=== PATIENT | female | born 1945 | race Caucasian/White ===

== ENCOUNTER 2016-07-28 17:59 | Emergency (ER) | payer MEDICARE ==
[~2016-07-28 17:59] MED LIST: ALBUTEROL IN200 PUFF INH; ALBUTEROL0.63 MG/3 INH; ALLERGY RELIEF10 M1 PO; BUSPIRONE HCL5 MG PO; FEOSOL325 MG PO; FOSAMAX70 MG PO; FUROSEMIDE20 MG PO; HUMULIN 70100 UNIT/1 SQ; LEVOFLOXACIN750 MG PO; LIPITOR10 MG PO; LISINOPRIL10 MG PO; MEDROL4 M1 PO; METFORMIN HCL500 MG PO; NICODERM 21MG PA1 EA TD; OMEPRAZOLE40 MG PO; PERCOCET 10-321 EACH PO; PLAVIX75 MG PO; POTASSIUM CHLO10 MEQ PO; ROPINIROLE HCL0.5 MG PO; THEO-24200 MG PO; TYLENOL325 M1 PO
[2016-07-28 19:09] LABS: BASO % 0.1 % (0.1-1.2); EOS # 0.1 10_X3_uL (0.0-0.4); EOS % 1.2 % (0.7-5.8); GRAN # 6.7 10_X3_uL (1.6-6.1); GRAN % 80.5 % (34.0-71.1); HEMATOCRIT 37.7 % (34-45); HEMOGLOBIN 13.2 g/dL (11.2-15.7); LYMPH # 1.2 10_X3_uL (1.2-3.7); LYMPH % 14.2 % (19.3-51.7); MEAN CORPUSCULAR HEMOGLOBIN 34.3 pg (27.0-33.0); MEAN CORPUSCULAR VOLUME 97.9 fL (79-95); MEAN PLATELET VOLUME 9.6 fl (7.5-11.5); MONO # 0.3 10_X3_uL (0.2-0.9); PLATELET COUNT 174 x10_3/uL (182-369); RED BLOOD COUNT 3.85 x10_6/uL (3.9-5.2); RED CELL DISTRIBUTION WIDTH 13.2 % (11.7-14.4); WHITE BLOOD COUNT 8.3 x10_3/uL (4.0-10.0)
[2016-07-28 19:25] LABS: BLOOD UREA NITROGEN 14 mg/dL (7-18); CALCIUM 8.7 mg/dL (8.7-10.7); CARBON DIOXIDE 29 mmol/L (21-32); CREATINE KINASE 29 U/L (21-215); CREATININE 0.9 mg/dL (0.6-1.3); GLUCOSE,RANDOM 260 mg/dL (70-99); POTASSIUM 3.9 mmol/L (3.5-5.1); SODIUM 132 mmol/L (136-145)
== END 2016-07-28 20:59 | disposition home or self-care (01) ==
LOC: ER 17:59
PROVIDERS: Emergency Medicine
DX: J44.0 Chronic obstructive pulmonary disease with (acute) lower respiratory infection (principal); J20.9 Acute bronchitis, unspecified; J44.1 Chronic obstructive pulmonary disease with (acute) exacerbation; I45.10 Unspecified right bundle-branch block; I50.9 Heart failure, unspecified; K21.9 Gastro-esophageal reflux disease without esophagitis; G89.29 Other chronic pain; F32.9 Major depressive disorder, single episode, unspecified; F11.20 Opioid dependence, uncomplicated; Z85.118 Personal history of other malignant neoplasm of bronchus and lung; Z95.1 Presence of aortocoronary bypass graft; Z99.81 Dependence on supplemental oxygen; Z88.0 Allergy status to penicillin; Z88.2 Allergy status to sulfonamides; Z79.891 Long term (current) use of opiate analgesic; Z79.899 Other long term (current) drug therapy
CPT/HCPCS: 36415; 71010; 80048; 82550; 82553; 83880; 85025; 87040; 87400; 93005; 94664; 96374; 99283-25; 99284; J2920

== ENCOUNTER 2016-08-07 20:36 | Emergency (ER) | payer OTHER, MEDICARE ==
[2016-08-07 23:29] LABS: BASO % 0.3 % (0.1-1.2); EOS # 0.1 10_X3_uL (0.0-0.4); EOS % 2.1 % (0.7-5.8); GRAN # 5.1 10_X3_uL (1.6-6.1); HEMATOCRIT 39.1 % (34-45); HEMOGLOBIN 13.5 g/dL (11.2-15.7); LYMPH # 1.2 10_X3_uL (1.2-3.7); LYMPH % 17.6 % (19.3-51.7); MEAN CORPUSCULAR HEMOGLOBIN 34.2 pg (27.0-33.0); MEAN CORPUSCULAR HGB CONC 34.5 g/dL (32.0-36.0); MEAN PLATELET VOLUME 9.9 fl (7.5-11.5); MONO # 0.4 10_X3_uL (0.2-0.9); PLATELET COUNT 173 x10_3/uL (182-369); RED BLOOD COUNT 3.95 x10_6/uL (3.9-5.2); RED CELL DISTRIBUTION WIDTH 12.5 % (11.7-14.4); WHITE BLOOD COUNT 6.8 x10_3/uL (4.0-10.0)
[2016-08-07 23:44] LABS: ALBUMIN 3.7 gm/dL (3.4-5.0); ALKALINE PHOSPHATASE 95 U/L (50-136); ALT/SGPT 12 U/L (3.5-33.9); AST/SGOT 14 U/L (7.04-26.96); BILIRUBIN,TOTAL 0.57 mg/dL (0.0-1.0); BLOOD UREA NITROGEN 14 mg/dL (7-18); CALCIUM 8.7 mg/dL (8.7-10.7); CARBON DIOXIDE 29 mmol/L (21-32); CREATINE KINASE 30 U/L (21-215); CREATININE 0.7 mg/dL (0.6-1.3); GLUCOSE,RANDOM 235 mg/dL (70-99); SODIUM 136 mmol/L (136-145); TOTAL PROTEIN 6.9 gm/dL (6.4-8.2)
== END 2016-08-08 01:55 | disposition home or self-care (01) ==
LOC: ER 20:36
PROVIDERS: Emergency Medicine
DX: J44.9 Chronic obstructive pulmonary disease, unspecified (principal); R06.02 Shortness of breath; R06.2 Wheezing; Z85.118 Personal history of other malignant neoplasm of bronchus and lung; Z95.1 Presence of aortocoronary bypass graft; F17.210 Nicotine dependence, cigarettes, uncomplicated; Z88.0 Allergy status to penicillin; Z88.2 Allergy status to sulfonamides; Z79.891 Long term (current) use of opiate analgesic
CPT/HCPCS: 36415; 71010; 80053; 82550; 82553; 83880; 85025; 93005; 94664; 99070; 99284; 99285-25

== ENCOUNTER 2016-08-27 22:39 | Emergency (ER) | payer OTHER, MEDICARE | END 2016-08-28 00:01 | disposition other institution (70) | LOC: ER 22:39 | DX: I50.9 Heart failure, unspecified (principal); J44.9 Chronic obstructive pulmonary disease, unspecified; J84.9 Interstitial pulmonary disease, unspecified; R60.0 Localized edema; R21 Rash and other nonspecific skin eruption; R06.02 Shortness of breath; I51.7 Cardiomegaly; I73.9 Peripheral vascular disease, unspecified; I87.8 Other specified disorders of veins; E66.01 Morbid (severe) obesity due to excess calories; E11.9 Type 2 diabetes mellitus without complications; I25.10 Atherosclerotic heart disease of native coronary artery without angina pectoris; Z95.1 Presence of aortocoronary bypass graft; Z99.81 Dependence on supplemental oxygen; F17.210 Nicotine dependence, cigarettes, uncomplicated; Z79.899 Other long term (current) drug therapy; Z88.0 Allergy status to penicillin | CPT/HCPCS: 99285-25 ==

== ENCOUNTER 2016-08-27 22:39 | Inpatient (IN) | payer OTHER, MEDICARE ==
[~2016-08-27] VITALS: Ht 167.6 cm; Wt 112.0 kg
[2016-08-27 23:06] LABS: BASO % 0.4 % (0.1-1.2); EOS # 0.2 10_X3_uL (0.0-0.4); EOS % 2.8 % (0.7-5.8); GRAN # 5.3 10_X3_uL (1.6-6.1); GRAN % 75.2 % (34.0-71.1); HEMATOCRIT 41.2 % (34-45); HEMOGLOBIN 14.2 g/dL (11.2-15.7); LYMPH # 1.2 10_X3_uL (1.2-3.7); LYMPH % 16.6 % (19.3-51.7); MEAN CORPUSCULAR HEMOGLOBIN 33.6 pg (27.0-33.0); MEAN CORPUSCULAR HGB CONC 34.5 g/dL (32.0-36.0); MEAN CORPUSCULAR VOLUME 97.4 fL (79-95); MEAN PLATELET VOLUME 9.5 fl (7.5-11.5); MONO # 0.4 10_X3_uL (0.2-0.9); PLATELET COUNT 181 x10_3/uL (182-369); RED BLOOD COUNT 4.23 x10_6/uL (3.9-5.2); RED CELL DISTRIBUTION WIDTH 12.3 % (11.7-14.4); WHITE BLOOD COUNT 7.1 x10_3/uL (4.0-10.0)
[2016-08-27 23:19] LABS: CALCIUM 8.6 mg/dL (8.7-10.7); POTASSIUM 4.4 mmol/L (3.5-5.1)
[2016-08-28 05:51] LABS: AHDL CHOLESTEROL 52 mg/dL (>40); ALBUMIN 3.7 gm/dL (3.4-5.0); ALKALINE PHOSPHATASE 90 U/L (50-136); ALT/SGPT 9 U/L (3.5-33.9); AST/SGOT 13 U/L (7.04-26.96); BILIRUBIN,TOTAL 0.58 mg/dL (0.0-1.0); BLOOD UREA NITROGEN 16 mg/dL (7-18); CALCIUM 8.8 mg/dL (8.7-10.7); CARBON DIOXIDE 28 mmol/L (21-32); CHOLESTEROL 188 mg/dL (0-200); CREATININE 0.9 mg/dL (0.6-1.3); GLUCOSE,RANDOM 118 mg/dL (70-99); LDL CHOLESTEROL 121 mg/dL (0-99); POTASSIUM 4.3 mmol/L (3.5-5.1); SODIUM 139 mmol/L (136-145); TOTAL PROTEIN 6.7 gm/dL (6.4-8.2); TRIGLYCERIDES 149 mg/dL (30-200)
[2016-08-28 06:11] LABS: HEMATOCRIT 40.7 % (34-45); HEMOGLOBIN 14.2 g/dL (11.2-15.7); MEAN CORPUSCULAR HEMOGLOBIN 33.6 pg (27.0-33.0); MEAN CORPUSCULAR HGB CONC 34.9 g/dL (32.0-36.0); MEAN CORPUSCULAR VOLUME 96.4 fL (79-95); MEAN PLATELET VOLUME 9.9 fl (7.5-11.5); RED BLOOD COUNT 4.22 x10_6/uL (3.9-5.2); RED CELL DISTRIBUTION WIDTH 12.3 % (11.7-14.4); WHITE BLOOD COUNT 7.3 x10_3/uL (4.0-10.0)
[2016-08-29 07:33] LABS: HEMATOCRIT 41.9 % (34-45); HEMOGLOBIN 14.3 g/dL (11.2-15.7); MEAN CORPUSCULAR HEMOGLOBIN 33.3 pg (27.0-33.0); MEAN CORPUSCULAR HGB CONC 34.1 g/dL (32.0-36.0); MEAN CORPUSCULAR VOLUME 97.4 fL (79-95); MEAN PLATELET VOLUME 9.9 fl (7.5-11.5); RED BLOOD COUNT 4.3 x10_6/uL (3.9-5.2); RED CELL DISTRIBUTION WIDTH 12.2 % (11.7-14.4); WHITE BLOOD COUNT 5.2 x10_3/uL (4.0-10.0)
[2016-08-29 07:53] LABS: BLOOD UREA NITROGEN 14 mg/dL (7-18); CALCIUM 8.9 mg/dL (8.7-10.7); CARBON DIOXIDE 30 mmol/L (21-32); CREATININE 0.8 mg/dL (0.6-1.3); GLUCOSE,RANDOM 126 mg/dL (70-99); MAGNESIUM 1.9 mg/dL (1.8-2.4); POTASSIUM 4.4 mmol/L (3.5-5.1); SODIUM 140 mmol/L (136-145)
[2016-08-30 06:39] LABS: HEMATOCRIT 37.7 % (34-45); HEMOGLOBIN 12.6 g/dL (11.2-15.7); MEAN CORPUSCULAR HEMOGLOBIN 33.2 pg (27.0-33.0); MEAN CORPUSCULAR HGB CONC 33.4 g/dL (32.0-36.0); MEAN CORPUSCULAR VOLUME 99.2 fL (79-95); RED BLOOD COUNT 3.8 x10_6/uL (3.9-5.2); RED CELL DISTRIBUTION WIDTH 12.4 % (11.7-14.4); WHITE BLOOD COUNT 5.1 x10_3/uL (4.0-10.0)
[2016-08-30 07:11] LABS: BILIRUBIN,TOTAL 0.6 mg/dL (0.0-1.0); CALCIUM 8.5 mg/dL (8.7-10.7); CREATININE 1.1 mg/dL (0.6-1.3); MAGNESIUM 1.9 mg/dL (1.8-2.4); POTASSIUM 4.7 mmol/L (3.5-5.1); TOTAL PROTEIN 5.9 gm/dL (6.4-8.2)
== END 2016-08-30 11:05 | disposition home or self-care (01) | DRG 292 ==
LOC: ER 22:39 → MS 08-28 00:01
PROVIDERS: General Practice; ADMIT Family Medicine
DX: I11.0 Hypertensive heart disease with heart failure (principal); J44.1 Chronic obstructive pulmonary disease with (acute) exacerbation; I50.33 Acute on chronic diastolic (congestive) heart failure; R19.5 Other fecal abnormalities; R09.89 Other specified symptoms and signs involving the circulatory and respiratory systems; R60.0 Localized edema; I25.10 Atherosclerotic heart disease of native coronary artery without angina pectoris; Z95.1 Presence of aortocoronary bypass graft; G89.29 Other chronic pain; M54.9 Dorsalgia, unspecified; Z85.118 Personal history of other malignant neoplasm of bronchus and lung; E11.9 Type 2 diabetes mellitus without complications; F17.210 Nicotine dependence, cigarettes, uncomplicated; Z99.81 Dependence on supplemental oxygen; Z79.899 Other long term (current) drug therapy; Z79.4 Long term (current) use of insulin; Z88.0 Allergy status to penicillin; Z88.8 Allergy status to other drugs, medicaments and biological substances
CPT/HCPCS: 36415; 71010; 80048; 80053; 80061; 80198; 82962; 83036; 83735; 83880; 85025; 87040; 93306; 94640; 96374; 96375; 99070; 99285-25; G0328-QW

== ENCOUNTER 2016-11-02 12:24 | Emergency (ER) | payer OTHER ==
[2016-11-02 13:03] LABS: BASO % 0.4 % (0.1-1.2); EOS # 0.1 10_X3_uL (0.0-0.4); EOS % 2.1 % (0.7-5.8); GRAN % 74.6 % (34.0-71.1); HEMOGLOBIN 12.7 g/dL (11.2-15.7); LYMPH # 1.2 10_X3_uL (1.2-3.7); LYMPH % 18.4 % (19.3-51.7); MEAN CORPUSCULAR HEMOGLOBIN 33.2 pg (27.0-33.0); MEAN CORPUSCULAR HGB CONC 34.3 g/dL (32.0-36.0); MEAN CORPUSCULAR VOLUME 96.9 fL (79-95); MEAN PLATELET VOLUME 9.9 fl (7.5-11.5); MONO # 0.3 10_X3_uL (0.2-0.9); MONO % 4.5 % (4.7-12.5); PLATELET COUNT 176 x10_3/uL (182-369); RED BLOOD COUNT 3.82 x10_6/uL (3.9-5.2); WHITE BLOOD COUNT 6.7 x10_3/uL (4.0-10.0)
[2016-11-02 13:14] LABS: URINE BILIRUBIN NEGATIVE (NEGATIVE); URINE BLOOD TRACE (NEGATIVE); URINE KETONE TRACE (NEGATIVE); URINE LEUKOCYTE ESTERASE 1+ (NEGATIVE); URINE NITRATE NEGATIVE (NEGATIVE); URINE PROTEIN 3+ (NEGATIVE)
[2016-11-02 13:16] LABS: URINE GLUCOSE (UA) 1000 mg/dL (NORMAL)
[2016-11-02 13:17] LABS: CALCIUM 8.7 mg/dL (8.7-10.7); POTASSIUM 4.3 mmol/L (3.5-5.1)
[2016-11-02 13:18] LABS: URINE AMORPHOUS SEDIMENT 3+; URINE BACTERIA 1+ (NONE SEEN); URINE RBC 0-5 /[HPF] (0-2)
== END 2016-11-02 15:59 | disposition home or self-care (01) ==
LOC: ER 12:24
PROVIDERS: Family Medicine
DX: N39.0 Urinary tract infection, site not specified (principal); E11.65 Type 2 diabetes mellitus with hyperglycemia; J44.9 Chronic obstructive pulmonary disease, unspecified; I10 Essential (primary) hypertension; I51.9 Heart disease, unspecified; F17.210 Nicotine dependence, cigarettes, uncomplicated; Z90.710 Acquired absence of both cervix and uterus; Z95.1 Presence of aortocoronary bypass graft; Z88.0 Allergy status to penicillin; Z88.2 Allergy status to sulfonamides; K44.9 Diaphragmatic hernia without obstruction or gangrene; Z79.899 Other long term (current) drug therapy; Z79.891 Long term (current) use of opiate analgesic
CPT/HCPCS: 36415; 71010; 80048; 81001; 85025; 99070; 99283; 99283-25